=== PATIENT | female | born 1990 | race American Indian/Alaskan Native ===

== ENCOUNTER 2022-08-02 20:50 | Emergency (ER) | payer SELFPAY ==
[2022-08-02 21:32] VITALS: BP 135/84
== END 2022-08-03 16:36 | disposition left against medical advice (07) ==
LOC: ED 20:50
DX: M25.571 Pain in right ankle and joints of right foot (principal); Z53.21 Procedure and treatment not carried out due to patient leaving prior to being seen by health care provider; V89.2XXA Person injured in unspecified motor-vehicle accident, traffic, initial encounter; Y93.89 Activity, other specified; Y92.89 Other specified places as the place of occurrence of the external cause; Y99.8 Other external cause status

== ENCOUNTER 2022-08-03 16:52 | Emergency (ER) | payer OTHER ==
[2022-08-03] MEDS ORDERED: oxyCODONE /ACETAMINOPHEN 5-325MG TAB PO ONE (18:37)
[2022-08-03] MEDS ORDERED: CYCLOBENZAPRINE 10 MG TAB PO ONE (18:37)
[2022-08-03] MEDS ORDERED: KETOROLAC 10 MG TAB PO ONE (18:37)
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
[2022-08-03 19:38] VITALS: BP 156/92
== END 2022-08-03 19:38 | disposition home or self-care (01) ==
LOC: ED 16:52
DX: M54.2 Cervicalgia (principal); M25.571 Pain in right ankle and joints of right foot; M25.511 Pain in right shoulder; M54.50 Low back pain, unspecified; Z79.899 Other long term (current) drug therapy; V87.7XXA Person injured in collision between other specified motor vehicles (traffic), initial encounter; Y93.89 Activity, other specified; Y92.488 Other paved roadways as the place of occurrence of the external cause; Y99.8 Other external cause status
CPT/HCPCS: 99283